=== PATIENT | male | born 1960 | race Caucasian/White ===

== ENCOUNTER 2020-04-03 12:24 | Outpatient (CLI) | payer BC ==
--- NOTE | 2020-04-03 14:04 | MRI ---
MRI CERVICAL SPINE WITHOUT CONTRAST: INDICATION: Neck pain. Spinal stenosis. FINDINGS: Moderate degenerative changes of the cervical spine noted. Loss of disk space at all levels below C2 . Anterior and lateral osteophytes from the cervical vertebrae. Posterior disk and spondylitic seamus nges at all levels as described below. C2-3: No significant abnormality. C3-4: Posterior disk bulge and spondylosis impinge on and mildly compress the anterior cord. Bilate ral foraminal stenosis secondary to facet and uncinate hypertrophy. C4-5: Posterior disk bulge and spondylosis impinge on and mildly compress the anterior cord. Bilate ral foraminal stenosis. C5-6: Disk bulge and spondylosis compress the anterior cord. Bilateral foraminal stenosis. C6-7: Disk bulge and spondylosis impinge on and compress the anterior cord. Bilateral foraminal kaveh nosis. C7-T1: There is a prominent disk and spondylitic change to the right with uncinate hypertrophy produ cing right foraminal encroachment and flattening the anterior thecal sac on the right. No significan t cord impingement. The cervical cord signal appears normal. IMPRESSION: Moderately severe degenerative disk changes of the cervical spine. Posterior disk bulge and spondyli tic changes are pronounced at C3-4, C4-5, C5-6, and C6-7. Cord compression and foraminal stenosis at these levels noted as described above. POS: OFF
== END 2020-04-03 12:25 | disposition home or self-care (01) ==
LOC: TBSIIMAG 12:24 → EDSEX 13:00
PROVIDERS: ATTEND Anesthesiology Pain Medicine
DX: M48.02 Spinal stenosis, cervical region (principal); M50.31 Other cervical disc degeneration, high cervical region; M50.93 Cervical disc disorder, unspecified, cervicothoracic region; G95.20 Unspecified cord compression; M46.92 Unspecified inflammatory spondylopathy, cervical region
CPT/HCPCS: 72141